=== PATIENT | female | born 1965 | race Hispanic/Latino ===

== ENCOUNTER 2018-03-13 18:16 | Emergency (ER) | payer OTHER ==
[2018-03-13] MEDS ORDERED: MECLIZINE HCL 12.5 MG TAB ONE (19:18)
[2018-03-13 19:44] LABS: Absolute Lymphocytes (CBC) 2.6 K/uL (0.7-4.9); Absolute Neutrophil 4.1 K/uL (1.8-8.0); Basophils % 0.8 % (0-1.3); Eosinophils % 3.3 % (0-4.4); Hematocrit 45.6 % (36.0-45.0); Lymphocytes % 31.8 % (15.3-44.8); MCH 30.1 pg (27.0-35.0); MCV 89.1 fL (80-100); MPV 10.9 fL (7.6-11.3); Monocytes % 12.6 % (3.3-12.3); RBC Red Blood Cell Count 5.12 M/uL (3.86-4.86)
[2018-03-13 19:57] LABS: ALT/SGPT 71 U/L (12-78); AST/SGOT 36 U/L (15-37); Albumin 3.7 g/dL (3.4-5.0); Alkaline Phosphatase 88 U/L (45-117); BUN Blood Urea Nitrogen 13 mg/dL (7-18); Bicarbonate 26 mmol/L (21-32); Bilirubin Direct < 0.1 mg/dL (0-0.2); Bilirubin Total 0.3 mg/dL (0.2-1.0); Glucose Level 217 mg/dL (74-106); Magnesium 2.2 mg/dL (1.8-2.4); Potassium 3.7 mmol/L (3.5-5.1); Sodium Level 139 mmol/L (136-145)
--- NOTE | 2018-03-13 19:58 | RAD REPORT ---
EXAM DESCRIPTION: CT - Head Brain Wo Cont - 03/13/2018 7:05 pm CLINICAL HISTORY: Dizziness COMPARISON: None. TECHNIQUE: Computed axial tomography of the head was obtained. IV contrast was not requested. All CT scans are performed using dose optimization technique as appropriate and may include automated exposure control or mA/KV adjustment according to patient size. FINDINGS: An intracranial bleed is not seen . The ventricles are normal in caliber. No extra-axial fluid collection is noted. Fluid within the sinuses/ mastoids is not seen. IMPRESSION: No acute intracranial abnormality is seen. If patient's symptoms persist MRI of the bra in would be recommended.
--- NOTE | 2018-03-13 20:04 | EDPHYS ---
Physician Documentation [facility] Name: Monisha Smith Age: 52 yrs Sex: Female : 1965 Arrival Date: 03/13/2018 Time: 18:19 Bed 19 Private MD: None, None ED Physician Nilo Steward HPI: 03/13 18:56 This 52 yrs old Female presents to ER via Ambulatory with complaints of jr8 Dizziness. 18:56 The patient presents with dizziness. Onset: The symptoms/episode began/occurred jr8 acutely, today. Context: occurred at work. Modifying factors: The symptoms are alleviated by nothing, the symptoms are aggravated by movement of head. Associated signs and symptoms: The patient has no apparent associated signs or symptoms. Severity of symptoms: At their worst the symptoms were moderate in the emergency department the symptoms have improved. Patient's baseline: Neuro: alert and fully oriented, Motor: no deficits, Ambulation: walks without assistance, Speech: normal. The patient has experienced similar episodes in the past, a few times. The patient has not recently seen a physician. Patient stated that she has had this in past and ended up being ear infection and tooth infection two of the times. Stated that she will still get it on/off though. Today had bad spell . 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 - Social history:: Smoking status: Patient/guardian denies using tobacco. - Ebola Screening: : Patient negative for fever greater than or equal to 101.5 degrees Fahrenheit, and additional compatible Ebola Virus Disease symptoms Patient denies exposure to infectious person Patient denies travel to an Ebola-affected area in the 21 days before illness onset No symptoms or risks identified at this time. ROS: 18:56 Eyes: Negative for injury, pain, redness, and discharge, ENT: Negative for injury, jr8 pain, and discharge, Neck: Negative for injury, pain, and swelling, Cardiovascular: Negative for chest pain, palpitations, and edema, Respiratory: Negative for shortness of breath, cough, wheezing, and pleuritic chest pain, Abdomen/GI: Negative for abdominal pain, nausea, vomiting, diarrhea, and constipation, Back: Negative for injury and pain, MS/Extremity: Negative for injury and deformity, Skin: Negative for injury, rash, and discoloration. 18:56 Neuro: Positive for dizziness, Negative for altered mental status, gait disturbance, headache, hearing loss, loss of consciousness, numbness, seizure activity, speech changes, syncope, near syncope, tingling, tinnitus, tremor, visual changes, weakness. Exam: 18:54 Head/Face: Normocephalic, atraumatic. Eyes: Pupils equal round and reactive to light, jr8 extra-ocular motions intact. Lids and lashes normal. Conjunctiva and sclera are non-icteric and not injected. Cornea within normal limits. Periorbital areas with no swelling, redness, or edema. ENT: Nares patent. No nasal discharge, no septal abnormalities noted. Tympanic membranes are normal and external auditory canals are clear. Oropharynx with no redness, swelling, or masses, exudates, or evidence of obstruction, uvula midline. Mucous membranes moist. Neck: Trachea midline, no thyromegaly or masses palpated, and no cervical lymphadenopathy. Supple, full range of motion without nuchal rigidity, or vertebral point tenderness. No Meningismus. Cardiovascular: Regular rate and rhythm with a normal S1 and S2. No gallops, murmurs, or rubs. Normal PMI, no JVD. No pulse deficits. Respiratory: Lungs have equal breath sounds bilaterally, clear to auscultation and percussion. No rales, rhonchi or wheezes noted. No increased work of breathing, no retractions or nasal flaring. Abdomen/GI: Soft, non-tender, with normal bowel sounds. No distension or tympany. No guarding or rebound. No evidence of tenderness throughout. Back: No spinal tenderness. No costovertebral tenderness. Full range of motion. Skin: Warm, dry with normal turgor. Normal color with no rashes, no lesions, and no evidence of cellulitis. MS/ Extremity: Pulses equal, no cyanosis. Neurovascular intact. Full, normal range of motion. Neuro: Awake and alert, GCS 15, oriented to person, place, time, and situation. Cranial nerves II-XII grossly intact. Motor strength 5/5 in all extremities. Sensory grossly intact. Cerebellar exam normal. Normal gait. 18:54 ECG was reviewed by the Attending Physician. Vital Signs: 18:26 BP 137 / 81; Pulse 83; Resp 17; Temp 97.9; Pulse Ox 95% on R/A; Weight 138.8 kg; Height aj 5 ft. 6 in. (167.64 cm); 19:42 BP 124 / 76; Pulse 77; Resp 17; Pulse Ox 96% on R/A; Pain 0/10; tl2 20:13 BP 129 / 88; Pulse 77; Resp 16; Temp 97.9; Pulse Ox 96% on R/A; Pain 0/10; tl1 18:26 Body Mass Index 49.39 (138.80 kg, 167.64 cm) aj MDM: 18:30 Patient medically screened. jr8 20:00 Differential diagnosis: cardiac arrhythmia, CVA, hypovolemia, idiopathic dizziness, jr8 near-syncope, syncope, TIA, vertigo. Data reviewed: vital signs, nurses notes, lab test result(s), EKG, radiologic studies, CT scan, and as a result, I will discharge patient. Data interpreted: Pulse oximetry: on room air is 96 %. Interpretation: normal. Counseling: I had a detailed discussion with the patient and/or guardian regarding: the historical points, exam findings, and any diagnostic results supporting the discharge/admit diagnosis, lab results, radiology results, the need for outpatient follow up, a furniture upholsterer, a neurologist, to return to the emergency department if symptoms worsen or persist or if there are any questions or concerns that arise at home. Response to treatment: the patient's symptoms have markedly improved after treatment. ED course: discussed with patient that she has some possible old infarct changes that should be further evaluated by furniture upholsterer to insure there is no damage to heart. No arrhythmias seen throughout care. Will send home on Antivert. Could be inner ear dysfunction as well . 03/13 18:45 Order name: Basic Metabolic Panel; Complete Time: 19:58 8 03/13 18:45 Order name: CBC with Diff; Complete Time: 19:53 8 03/13 18:45 Order name: LFT's; Complete Time: 19:58 03/13 18:45 Order name: Magnesium; Complete Time: 19:58 03/13 18:45 Order name: CT Head Brain wo Cont; Complete Time: 20:00 03/13 18:45 Order name: EKG; Complete Time: 18:45 03/13 18:45 Order name: Cardiac monitoring; Complete Time: 19:16 03/13 18:45 Order name: EKG - Nurse/Tech; Complete Time: 19:16 03/13 18:45 Order name: IV Saline Lock; Complete Time: 19:16 03/13 18:45 Order name: Labs collected and sent; Complete Time: 19:03/13 18:45 Order name: O2 Per Protocol; Complete Time: 19:16 03/13 18:45 Order name: O2 Sat Monitoring; Complete Time: 19:16 EC:54 Rate is 76 beats/min. Rhythm is regular, Normal Sinus Rhythm. QRS Jean is Normal. UT jr8 interval is prolonged at 240 msec. QRS interval is normal at 92 msec. QT interval is normal at 454 msec. Q waves are Present in leads III, aVF. T waves are Inverted in leads III, V1. No ST changes noted. Clinical impression: NSR w/ Non-specific ST/T Changes and 1st degree heart block. Interpreted by me. Reviewed by me. Administered Medications: 19:16 Drug: Antivert 25 mg Route: PO; tl2 20:14 Follow up: Response: No adverse reaction; No change in condition tl1 Disposition: 03/13/18 20:03 Discharged to Home. Impression: Dizziness . - Condition is Stable. - Discharge Instructions: Dizziness. - Prescriptions for Antivert 25 mg Oral Tablet - take 1 tablet by ORAL route every 8 hours As needed; 20 tablet. - Medication Reconciliation Form, Thank You Letter, Antibiotic Education, Prescription Opioid Use form. - Follow up: Salas Haines MD; When: 1 week; Reason: Recheck today's complaints, Continuance of care, Re-evaluation by your physician. Follow up: Xu Pickens MD; When: 1 week; Reason: Recheck today's complaints, Continuance of care, Re-evaluation by your physician. - Problem is new. - Symptoms have improved. Signatures: Dispatcher [employer] EDMS Mary Jo Mcnally RN RN Charanjit Wilcox PA PA jr8 Nicci Arriola, RN RN tl1 Sasha Griffin RN RN tl2 Corrections: (The following items were deleted from the chart) 20:23 20:03 03/13/2018 20:03 Discharged to Home. Impression: Dizziness . Condition is Stable. tl1 Forms are Medication Reconciliation Form, Thank You Letter, Antibiotic Education, Prescription Opioid Use. Follow up: Salas Haines; When: 1 week; Reason: Recheck today's complaints, Continuance of care, Re-evaluation by your physician. Follow up: Xu Pickens; When: 1 week; Reason: Recheck today's complaints, Continuance of care, Re-evaluation by your physician. Problem is new. Symptoms have improved. jr8
--- NOTE | 2018-03-13 20:04 | ER ---
Nurse's Notes [facility] Name: Monisha Smith Age: 52 yrs Sex: Female : 1965 Arrival Date: 03/13/2018 Time: 18:19 Bed 19 Private MD: None, None Diagnosis: Dizziness Presentation: 03/13 18:23 Presenting complaint: Patient states: Reports dizziness and pressure that came from her aj chest up to her throat that happened after eating 2 hours ago. Transition of care: patient was not received from another setting of care. Onset of symptoms was March 13, 2018. Risk Assessment: Do you want to hurt yourself or someone else? Patient reports no desire to harm self or others. Initial Sepsis Screen: Does the patient meet any 2 criteria? No. Patient's initial sepsis screen is negative. Does the patient have a suspected source of infection? No. Patient's initial sepsis screen is negative. Care prior to arrival: None. 18:23 Method Of Arrival: Ambulatory aj 18:23 Acuity: KEVIN 3 aj Triage Assessment: 18:26 General: Appears in no apparent distress. comfortable, obese, Behavior is calm, aj cooperative, appropriate for age. Pain: Denies pain. Neuro: Level of Consciousness is awake, alert, obeys commands, Oriented to person, place, time, situation, Appropriate for age Reports dizziness. Cardiovascular: Denies chest pain. Respiratory: Airway is patent Respiratory effort is even, unlabored, Respiratory pattern is regular, symmetrical. Derm: Skin is intact, is healthy with good turgor, Skin is pink, warm \T\ dry. normal. 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 - Social history:: Smoking status: Patient/guardian denies using tobacco. - Ebola Screening: : Patient negative for fever greater than or equal to 101.5 degrees Fahrenheit, and additional compatible Ebola Virus Disease symptoms Patient denies exposure to infectious person Patient denies travel to an Ebola-affected area in the 21 days before illness onset No symptoms or risks identified at this time. Screenin:00 Patient has been NPO before screening. The patient is alert, able to follow commands. tl2 The patient does not exhibit slurred or garbled speech The patient is not exhibiting difficulty speaking. The patient does not exhibit difficulty understanding words. The patient is able to swallow own secretions with no drooling or need for suction. Patient tolerated one teaspoon of water. No drooling, immediate coughing, gurgling, or clearing of the throat was noted. The patient tolerated 90mL of water. No drooling, immediate coughing, gurgling, or clearing of the throat was noted. The patient passed the bedside swallow screening. Oral medications may be given as ordered. Contact Physician for further diet orders. 19:13 Abuse screen: Denies threats or abuse. Nutritional screening: No deficits noted. em Tuberculosis screening: No symptoms or risk factors identified. Fall Risk None identified. Assessment: 18:45 General: Appears in no apparent distress. comfortable, Behavior is calm, cooperative. em Pain: Denies pain. Neuro: Level of Consciousness is awake, alert, obeys commands, Oriented to person, place, time, situation, Reports dizziness, Denies weakness blurred vision headache. Neuro: Systems Administration Analyst are equal bilaterally Moves all extremities. Gait is steady, Speech is normal, Facial symmetry appears normal, Pupils are PERRLA, Intact. Cardiovascular: Denies chest pain, nausea, vomiting, Capillary refill < 3 seconds Patient's skin is warm and dry. Respiratory: Airway is patent Respiratory effort is even, unlabored, Respiratory pattern is regular, symmetrical. GI: Abdomen is obese, Patient currently denies nausea, vomiting. : No signs and/or symptoms were reported regarding the genitourinary system. EENT: Oral mucosa is moist. Throat is clear is pink. Derm: Skin is intact, Skin is pink, warm \T\ dry. Musculoskeletal: Circulation, motion, and sensation intact. Capillary refill < 3 seconds, Range of motion: intact in all extremities. 18:45 Reassessment: I agree with assessment completed by KYLE Virgen aa5 19:46 Reassessment: Patient and/or family updated on plan of care and expected duration. Pain tl2 level reassessed. Patient is alert, oriented x 3, equal unlabored respirations, skin warm/dry/pink. Patient denies pain at this time. General: Appears in no apparent distress. Behavior is calm, cooperative. Pain: Denies pain. Neuro: Level of Consciousness is awake, alert, obeys commands, Oriented to person, place, time, situation, Reports dizziness. Cardiovascular: Denies chest pain. Respiratory: Airway is patent Respiratory effort is even, unlabored, Respiratory pattern is regular, symmetrical. GI: Abdomen is obese, Patient currently denies abdominal pain. : No signs and/or symptoms were reported regarding the genitourinary system. EENT: Reports nasal congestion popping in ears. Vital Signs: 18:26 BP 137 / 81; Pulse 83; Resp 17; Temp 97.9; Pulse Ox 95% on R/A; Weight 138.8 kg; Height aj 5 ft. 6 in. (167.64 cm); 19:42 BP 124 / 76; Pulse 77; Resp 17; Pulse Ox 96% on R/A; Pain 0/10; tl2 20:13 BP 129 / 88; Pulse 77; Resp 16; Temp 97.9; Pulse Ox 96% on R/A; Pain 0/10; tl1 18:26 Body Mass Index 49.39 (138.80 kg, 167.64 cm) ED Course: 18:19 Patient arrived in ED. mr 18:20 None, None is Private Physician. mr 18:25 Triage completed. aj 18:26 Arm band placed on right wrist. Patient placed in an exam room. aj 18:28 David Adams LVN is Primary Nurse. em 18:30 Charanjit North PA is PHCP. jr8 18:30 Nilo Steward MD is Attending Physician. jr8 19:04 CT completed. Patient moved to CT via wheelchair. Patient moved back from CT. cw1 19:04 CT Head Brain wo Cont In Process Unspecified. EDMS 19:13 Patient has correct armband on for positive identification. Placed in gown. Bed in low em position. Call light in reach. 19:17 No provider procedures requiring assistance completed. Inserted saline lock: 20 gauge tl2 in left antecubital area, using aseptic technique. Blood collected. 19:17 Initial lab(s) drawn, by me, sent to lab. cc 19:27 Primary Nurse role handed off by David Adams LVN rg2 19:33 Sasha Griffin, RN is Primary Nurse. tl2 20:03 Salas Haines MD is Referral Physician. jr8 20:03 Xu Pickens MD is Referral Physician. jr8 20:14 IV discontinued, intact, bleeding controlled, No redness/swelling at site. Pressure tl1 dressing applied. Administered Medications: 19:16 Drug: Antivert 25 mg Route: PO; tl2 20:14 Follow up: Response: No adverse reaction; No change in condition tl1 Outcome: 20:03 Discharge ordered by . jr8 20:15 Discharged to home ambulatory, with family. tl1 20:15 Condition: stable 20:15 Discharge instructions given to patient, family, Instructed on discharge instructions, follow up and referral plans. medication usage, Demonstrated understanding of instructions, follow-up care, medications, Prescriptions given X 1. 20:23 Patient left the ED. tl1 Signatures: Dispatcher [employer] EDKY Rossy Michael rg2 Mary Jo Mcnally, RN Nory Devi mr David Adams, KYLE BILINGUAL EXECUTIVE ASSISTANT Gill Brunson, RN RN Ynes Mora 1 Yessy Young cc Charanjit North PA PA jr8 Nicci Arriola RN RN tl1 Sasha Griffin, RN RN tl2 Corrections: (The following items were deleted from the chart) 19:15 18:45 Cardiovascular: Capillary refill < 3 seconds Patient's skin is warm and dry. em em
--- NOTE | 2018-03-15 07:53 | EKG ---
Test Date: 2018-03-13 Test Time: 18:45:31 Sewing Machinist: NORA MEASUREMENT RESULTS: Intervals: Rate: 76 CA: 240 QRSD: 92 QT: 404 QTc: 454 [place]re: P: 41 CA: 240 QRS: -4 T: 8 INTERPRETIVE STATEMENTS: Sinus rhythm with 1st degree AV block Inferior infarct, age undetermined Cannot rule out Anterior infarct, age undetermined Abnormal ECG Compared to ECG 07/12/2014 10:14:33 No significant changes Electronically Signed On 03-15-18 07:51:23 CDT by Salas Haines
== END 2018-03-13 20:23 | disposition home or self-care (01) ==
LOC: ER 18:16
DX: R42 Dizziness and giddiness (principal); Z88.0 Allergy status to penicillin; I10 Essential (primary) hypertension; E11.9 Type 2 diabetes mellitus without complications; Z79.84 Long term (current) use of oral hypoglycemic drugs
CPT/HCPCS: 36415; 70450; 80048; 80076; 83735; 85025; 93005; 99284